=== PATIENT | male | born 1990 | race African-American/Black ===

== ENCOUNTER 2022-07-24 01:46 | Emergency (ER) | payer OTHER ==
[~2022-07-24] VITALS: Ht 167.6 cm; Wt 70.3 kg
--- NOTE | 2022-07-24 02:00 | NUR ---
Patient BIB [facility] for C/O OD. Per report from rescue patient was found in her car parked, unconscious, pin point pupils and bradypnea. Patient was given 2 intra nasal narcan and woke up. Upon arrival A/Ox3 with no distress noted.
[2022-07-24 03:02] LABS: *BILIRUBIN,URIN NEGATIVE (NEGATIVE); *BLOOD, URINE 2+ (NEGATIVE); *COLOR,URINE YELLOW (YELLOW); *KETONES,URINE NEGATIVE (NEGATIVE); *UROBILINOGEN,URINE 0.2 E.U./dl (NORMAL); LEUKOCYTE ESTERASE ,URINE 1+ (NEGATIVE); NITRITE, URINE POSITIVE (NEGATIVE); PH,URINE 5.5 (5.0-8.0); UGLUCOSE NEGATIVE (NEGATIVE)
[2022-07-24 03:11] LABS: *AMPHETAMINE, URINE POSITIVE (NEGATIVE); *CANNABINOID, URINE NEGATIVE (NEGATIVE); *COCCAINE, URINE NEGATIVE (NEGATIVE); *OPIATE, URINE NEGATIVE (NEGATIVE); *PHENCYCLIDINE SCREEN,URINE NEGATIVE (NEGATIVE)
[2022-07-24 03:14] LABS: *CLARITY,URINE CLOUDY (CLEAR)
[2022-07-24 04:00] LABS: BACTERIA,URINE MODERATE /HPF (NONE SEEN); SQUAMOUS EPITHELIAL CELL,UR NONE SEEN /HPF (NONE SEEN)
--- NOTE | 2022-07-24 05:39 | NUR ---
Patient discharged to home in stable condition. Written and verbal after care instructions given. Patient verbalizes understanding of instructions. Stressed follow up or return to ER for worsening s/s. Patient walked out with steady gait.
[2022-07-24 05:48] VITALS: BP 130/74
== END 2022-07-24 05:39 | disposition home or self-care (01) ==
LOC: ER 01:49
DX: T40.601A Poisoning by unspecified narcotics, accidental (unintentional), initial encounter (principal); R40.20 Unspecified coma; F15.10 Other stimulant abuse, uncomplicated; Y92.810 Car as the place of occurrence of the external cause
CPT/HCPCS: A4663